=== PATIENT | female | born 1985 | race Caucasian/White ===

== ENCOUNTER → 2016-11-21 | Outpatient (REF) | payer OTHER ==
[~2016-11-21] MED LIST: ACET50TA PO; FLINCHW9 PO; IBUP80TA PO
[2016-11-21 18:17] LABS: ALBUMIN 4.1 GM/DL (3.2-5.2); ALBUMIN/GLOBULIN RATIO 1.24 (1.00-1.93); BILIRUBIN,DIRECT 0.1 MG/DL (0.0-0.2); BILIRUBIN,TOTAL 0.4 MG/DL (0.2-1.0); TOTAL PROTEIN 7.4 GM/DL (6.4-8.2)
== END ==
LOC: M SFHCCLAY 11:11
PROVIDERS: ATTEND Nurse Practitioner Family
DX: E78.5 Hyperlipidemia, unspecified (principal)

== ENCOUNTER → 2020-10-02 | Outpatient (REF) | payer OTHER ==
[~2020-10-02] MED LIST changes: -ACET50TA PO; +MAPA500T2 PO
[2020-10-02 13:56] LABS: HEMATOCRIT 39.2 % (36.0-47.0); HEMOGLOBIN 12.7 g/dl (12.0-15.5); MEAN CORPUSCULAR HEMOGLOBIN 28.5 pg (27.0-33.0); MEAN CORPUSCULAR HGB CONC 32.4 g/dl (32.0-36.5); MEAN CORPUSCULAR VOLUME 88.1 fl (80.0-96.0); PLATELET COUNT, AUTOMATED 319 10^3/uL (150-450); RED BLOOD COUNT 4.45 10^6/uL (4.00-5.40); WHITE BLOOD COUNT 9.1 10^3/uL (4.0-10.0)
[2020-10-02 14:11] LABS: ALT/SGPT 20 U/L (12-78); BILIRUBIN,TOTAL 0.4 MG/DL (0.2-1.0); CREATININE FOR GFR 0.72 MG/DL (0.55-1.30); GLOMERULAR FILTRATION RATE > 60.0 (>60); GLUCOSE CHALLENGE TEST 1 HOUR 186 MG/DL (LESS THAN 140); LDH LACTATE DEHYDROGENASE 108 U/L (84-246); URIC ACID 5.2 MG/DL (2.6-6.0)
[2020-10-02 14:30] LABS: CREATININE,RANDOM URINE 58.1 MG/DL; TOTAL PROTEIN,RANDOM URINE 9.3 MG/DL (0.0-12.0)
[2020-10-02 14:52] LABS: HEPATITIS C VIRUS ABY INDEX < 0.0 INDEX (<0.8)
[2020-10-02 14:53] LABS: HIV 1&2 SCREEN CENTAUR NEGATIVE (NEGATIVE)
== END ==
LOC: M PLALAB 10:32
PROVIDERS: ATTEND Advanced Practice Midwife
DX: O09.291 Supervision of pregnancy with other poor reproductive or obstetric history, first trimester (principal)

== ENCOUNTER → 2020-10-23 | Outpatient (CLI) | payer OTHER | LOC: M LAB 08:36 | PROVIDERS: ATTEND Advanced Practice Midwife | DX: O99.810 Abnormal glucose complicating pregnancy (principal) ==

== ENCOUNTER → 2020-11-21 | Outpatient (CLI) | payer OTHER | LOC: M WHC 15:20 | PROVIDERS: ATTEND Obstetrics & Gynecology | DX: Z34.92 Encounter for supervision of normal pregnancy, unspecified, second trimester (principal); Z3A.17 17 weeks gestation of pregnancy; Z53.9 Procedure and treatment not carried out, unspecified reason ==

== ENCOUNTER → 2020-12-15 | Outpatient (CLI) | payer OTHER ==
--- NOTE | 2020-12-15 19:24 | REP ---
INDICATION: ANATOMY. COMPARISON: 11/16/2014 TECHNIQUE: Second trimester anatomy screen FINDINGS: Scanning demonstrates a viable single intrauterine gestation in a cephalic lie. motion is observed and heart rate is recorded at 147 beats per minute. An anterior, grade 1 placenta is seen without evidence of previa. Amniotic fluid is subjectively normal. Closed cervical length is measured at 4.5 cm transabdominally. No extrauterine abnormality is observed. Three-vessel cord with mid insertion noted. There has been appropriate interval growth. No anomaly is seen. The following anatomic structures are identified and felt to be sonographically unremarkable: cranium, choroid plexus, cavum, cerebellum and posterior fossa, face and profile, lungs, four-chamber heart with left ventricular outflow tract views, diaphragm, left-sided stomach, abdominal wall cord insertion, three-vessel umbilical cord, kidneys and bladder, spine, and upper and lower extremities. The left ventricular outflow tract is poorly seen due to position. Biometry chart: BPD 4.7 cm; 20 weeks 1 days Head circumference 17.3 cm; 19 weeks 6 days Abdominal circumference 14.6 cm; 19 weeks 6 days Femur length 3.3 cm; 20 weeks 2 days Humeral length 3.3 cm; 21 weeks 0 days HC/AC ratio normal 1.19 Cephalic index normal 0.75 Estimated weight 329 grams, 0 pounds 11 ounces, 21st percentile for 20 weeks 4 days. IMPRESSION: Viable single intrauterine gestation at 20 weeks 2 days by today's composite sonographic criteria. Expected gestational age estimate based on prior sonography is 20 weeks is 4 days. DINO by prior sonography 05/02/2021. No anomaly identified, the right ventricular outflow tract not optimally seen and may be re-scanned later in the 2nd trimester. <Electronically signed by Frandy Reilly > 12/15/20 [id number]
== END ==
LOC: M WHC 14:11
PROVIDERS: ATTEND Obstetrics & Gynecology
DX: Z36.9 Encounter for antenatal screening, unspecified (principal); Z3A.20 20 weeks gestation of pregnancy

== ENCOUNTER → 2021-01-11 | Outpatient (CLI) | payer OTHER ==
--- NOTE | 2021-01-11 14:16 | REP ---
INDICATION: F/U ANATOMY. COMPARISON: 12/15/2020. TECHNIQUE: Multiple ultrasonographic images of the gravid uterus. FINDINGS: On the comparison study the cardiac right ventricular outflow tract not optimally demonstrated. The anatomy was otherwise normal. On the study today the cardiac right ventricular outflow tract is satisfactorily demonstrated and unremarkable in appearance. The There is a single intrauterine gestation in a breech presentation. The placenta is anterior with grade 1 maturity. There is no placenta previa. There is a three-vessel umbilical cord. heart rate is 144 beats per minute. Subjectively the amniotic fluid volume is normal. The composite ultrasound gestational age is 24 weeks 0 days with an DINO of 05/03/2021. Gestational age by the 1st ultrasound is 24 weeks 3 days with an DINO of 04/30/2021. Estimated weight is 735 g/1 lb, 9 oz. This is the 5th percentile for 24 weeks 3 days. The cervix measures 3.2 cm length. IMPRESSION: The cardiac right ventricular outflow tract is satisfactory demonstrated and is unremarkable. The remainder of the anatomy was previously evaluated and unremarkable. <Electronically signed by Orlando Kovacs > 01/11/21 [id number]
== END ==
LOC: M WHC 11:41
PROVIDERS: ATTEND Specialist
DX: Z34.82 Encounter for supervision of other normal pregnancy, second trimester (principal); Z3A.22 22 weeks gestation of pregnancy

== ENCOUNTER → 2021-01-24 | Outpatient (REF) | payer OTHER ==
[2021-01-24 15:30] LABS: HEMATOCRIT 38.6 % (36.0-47.0); HEMOGLOBIN 12.4 g/dl (12.0-15.5); MEAN CORPUSCULAR HEMOGLOBIN 28.6 pg (27.0-33.0); MEAN CORPUSCULAR HGB CONC 32.1 g/dl (32.0-36.5); MEAN CORPUSCULAR VOLUME 88.9 fl (80.0-96.0); PLATELET COUNT, AUTOMATED 308 10^3/uL (150-450); RED BLOOD COUNT 4.34 10^6/uL (4.00-5.40); WHITE BLOOD COUNT 12.3 10^3/uL (4.0-10.0)
[2021-01-24 15:48] LABS: HEMOGLOBIN A1c 5.4 %
== END ==
LOC: M PLALAB 12:24
PROVIDERS: ATTEND Obstetrics & Gynecology
DX: O24.319 Unspecified pre-existing diabetes mellitus in pregnancy, unspecified trimester (principal)

== ENCOUNTER → 2021-01-30 | Outpatient (CLI) | payer OTHER ==
--- NOTE | 2021-01-30 11:16 | REP ---
INDICATION: PREGESTATIONAL DIABETES COMPARISON: 01/11/2021 TECHNIQUE: Transabdominal obstetrical ultrasound with color Doppler evaluation. FINDINGS: Examination demonstrates a single live intrauterine in transverse (head to maternal left) presentation. motion is identified by technologist. Placenta is noted anterior and grade 1 without evidence for placenta previa or abruption. Amniotic fluid volume is normal. Cervix measures 4.0 cm in length and appears closed. Gestational age by LMP and 1st U/S 27 weeks 1 day with DINO 04/30/2021. Gestational age by current measurements 26 weeks 5 days with DINO 05/03/2021. FHR equals 146 beats per minute. BPD: 6.3 cm at 25 weeks 2 days HC: 24.7 cm at 26 weeks 6 days AC: 22.6 cm at 27 weeks 0 days FL: 5.0 cm at 26 weeks 5 days HL: 4.7 cm at 27 weeks 5 days HC/AC: 1.10 Estimated weight 994 grams (28thpercentile). BUDDY: 13.1 cm (9.5-22.6) IMPRESSION: Single live intrauterine in transverse lie demonstrating appropriate estimated weight and growth. <Electronically signed by Lupillo Huston > 01/30/21 [id number]
== END ==
LOC: M WHC 09:41
PROVIDERS: ATTEND Advanced Practice Midwife
DX: O24.312 Unspecified pre-existing diabetes mellitus in pregnancy, second trimester (principal); Z3A.27 27 weeks gestation of pregnancy

== ENCOUNTER 2021-03-07 11:23 | Outpatient (CLI) | payer OTHER ==
[2021-03-07] VITALS (15 sets, daily range): BP systolic 139–169; BP diastolic 70–93
[~2021-03-07] VITALS: Ht 162.6 cm; Wt 109.5 kg
--- NOTE | 2021-03-07 14:31 | REP ---
INDICATION: BPP and BUDDY, FHR cat II, Diabetes, hypertension. COMPARISON: Multiple TECHNIQUE: Transabdominal scanning FINDINGS: Multiple ultrasonographic images of the gravid uterus shows a single living intrauterine gestation in the cephalic presentation. Doppler interrogation of the heart shows a heart rate of 153 beats per minute. The placenta is anterior and not low-lying. The cervix measures 5.1 cm in length and is closed. The subjective amniotic fluid volume is within normal limits. The calculated amniotic fluid index is 10.9 within expected range a 10.9-24.3. Doppler interrogation of the umbilical artery shows an AB ratio of 2.35. This is within the normal range. biophysical profile score is 2 for breathing, 2 for tone, 2 for movement, and 2 for amniotic fluid volume giving a sum total of 8/8. IMPRESSION: Limited OB ultrasound as described above. <Electronically signed by Sarbjit Mcfarland > 03/07/21 [id number]
--- NOTE | 2021-03-07 16:04 | IPN ---
PROGRESS NOTE DATE: 03/07/2021 SUBJECTIVE: Tameka is a 35-year-old 4, para 2-1-0-3, 32-2/7 weeks gestation, estimated date of confinement of 04/30/2021 based on first trimester ultrasound. She presents to Labor and Delivery today for prolonged monitoring due to variable decelerations on her NST in the office for routine visit. She denies vaginal bleeding, leakage of fluid and contractions. The fetus has been active. Her care was initiated at [facility], [place] in the first trimester. course complicated by a history of a prior section with a proven , pre-gestational diabetes on Insulin, a history of preeclampsia, history of chronic hypertension on no current medications. Aspirin 81 mg a day. OBJECTIVE: Vital signs: Blood pressures 142/78, 146/78, 140/71. She is alert and oriented times three. She is smiling and talkative. The heart rate is difficult to trace due to maternal body habitus and the continuous movement. Sterile vag exam deferred. No pattern of contractions. She did undergo a biophysical profile which returned a score of 8 out of 8 and an BUDDY of 10.9. ASSESSMENT: Intrauterine at 32-2/7 weeks. Overall score is 8 out of 10. PLAN: Per consult with Dr. Asya Durán, no need for betamethasone at this time, no need for antihypertensives at this time. Plan to start utilizing biophysical profiles on a weekly basis instead of a non-stress test. The patient is to continue her care with the MDs at [facility], [place]. I did review the plan of care with the patient. All of her questions have been answered. She is to keep her appointment next week as scheduled and order will be placed for biophysical profile on a weekly basis.
[2021-03-07] MEDS ORDERED: PRENTAB9 PO (16:45)
[2021-03-07] MEDS ORDERED: INSULIN (16:49)
== END 2021-03-07 15:47 | disposition home or self-care (01) ==
LOC: M LDO 11:23
PROVIDERS: ATTEND Advanced Practice Midwife
DX: O36.8330 Maternal care for abnormalities of the fetal heart rate or rhythm, third trimester, not applicable or unspecified (principal); Z3A.33 33 weeks gestation of pregnancy; O24.414 Gestational diabetes mellitus in pregnancy, insulin controlled; O34.219 Maternal care for unspecified type scar from previous cesarean delivery; Z79.82 Long term (current) use of aspirin

== ENCOUNTER 2021-03-14 11:47 | Inpatient (IN) | payer OTHER ==
[2021-03-14] VITALS (47 sets, daily range): BP systolic 129–199; BP diastolic 62–101
[~2021-03-14] VITALS: Ht 162.6 cm; Wt 108.6 kg
[~2021-03-14 11:47] MED LIST changes: +INSULIN; +PRENTAB9 PO
[2021-03-14 14:17] LABS: HEMATOCRIT 37.4 % (36.0-47.0); HEMOGLOBIN 12.5 g/dl (12.0-15.5); MEAN CORPUSCULAR HEMOGLOBIN 28.5 pg (27.0-33.0); MEAN CORPUSCULAR HGB CONC 33.4 g/dl (32.0-36.5); MEAN CORPUSCULAR VOLUME 85.4 fl (80.0-96.0); PLATELET COUNT, AUTOMATED 304 10^3/uL (150-450); RED BLOOD COUNT 4.38 10^6/uL (4.00-5.40); WHITE BLOOD COUNT 10.8 10^3/uL (4.0-10.0)
[2021-03-14 14:35] LABS: ALT/SGPT 12 U/L (12-78); BILIRUBIN,TOTAL 0.3 MG/DL (0.2-1.0); CREATININE FOR GFR 0.46 MG/DL (0.55-1.30); GLOMERULAR FILTRATION RATE > 60.0 (>60); LDH LACTATE DEHYDROGENASE 176 U/L (84-246); URIC ACID 6.5 MG/DL (2.6-6.0)
[2021-03-14 15:39] LABS: TOTAL PROTEIN,RANDOM URINE 219.7 MG/DL (0.0-12.0)
--- NOTE | 2021-03-14 15:40 | REP ---
INDICATION: BPP, BUDDY, GROWTH, HTN, IDDM. COMPARISON: 03/07/2021. TECHNIQUE: Real-time sonographic evaluation of the gravid uterus performed. FINDINGS: Estimated gestational age is33 weeks 2 days, EDC 04/30/2021. Today's measurements indicate appropriate growth. Presentation: Cephalic Placenta anterior, grade 3, without evidence of placenta previa. heart rate is recorded at 136 beats per minute. Amniotic fluid is subjectively normal. BUDDY 10.2, normal 8.2-24.6. Biophysical profile score 8/8. Closed cervical length is measured at 3.4 cm. SD ratio umbilical artery 2.63, normal 1.77-3.74. RI 0.62, normal 0.48-0.74. Biometry chart: BPD: 82 mm, 33 weeks 0 days, 46th percentile. HC: 303 mm, 33 weeks 5 days, 56th percentile AC: 289 mm, 32 weeks 6 days, 44th percentile Femur length: 62 mm, 32 weeks 2 days, 34th percentile HC to AC ratio: 1.05, normal range 0.95-1.13. Estimated weight: 2047g, 48th percentile. Visualized anatomy today includes lateral ventricles, posterior fossa, upper lip, stomach, three-vessel cord, kidneys, bladder and spine which are all grossly unremarkable. IMPRESSION: Viable single intrauterine gestation as above. <Electronically signed by Orlando Franklin > 03/14/21 [id number]
[2021-03-14] MEDS ORDERED: LIDOCAINE 1% MDV 20ML VIAL INFIL PRN (16:35)
[2021-03-14] MEDS ORDERED: OXYTOCIN INJ 10 UNITS/ML VIAL (J2590) IM PRN (16:35)
[2021-03-14] MEDS ORDERED: CARBOPROST TROMETHAMINE 250 MCG/ML AMP IM PRN (16:35)
[2021-03-14] MEDS ORDERED: OXYTOCIN DRIP 30 UNITS in IV 1 EA IV PRN (16:35)
[2021-03-14] MEDS ORDERED: D5W/0.9% SODIUM CHLORIDE 1,000 ML IV SCH (16:50)
[2021-03-14] MEDS: BETAMETHASONE SOLUSPAN 6MG/ML 5ML VIAL (J0702 PER 3MG) IM SCH (17:02)
[2021-03-14] MEDS: NS 1,000 ML IV SCH (17:30)
--- NOTE | 2021-03-14 17:44 | HPE ---
HISTORY AND PHYSICAL DATE OF ADMISSION: 03/14/2021 Tameka is a 35-year-old, 4, para 2-1-0-3 at 32-2/7 weeks gestation. Estimated date of confinement (EDC) of 04/30/2021 based on first-trimester ultrasound. She presents to labor and delivery today following a routine appointment, where she was noted to have two severe-range blood pressures. Since arrival to labor and delivery she denies headaches, visual disturbances, epigastric pain, and right upper quadrant discomfort. She denies vaginal bleeding, leakage of fluid, contractions. The fetus has been active. [facility] was [facility] at [facility] in the first trimester. Her course complicated by a history of a prior section times one. She had a prior spontaneous vaginal delivery prior to that, and she also has had a successful vaginal after () since her section. Pregestational diabetes, managed by insulin, that the patient has not controlled well throughout this . A history of pre-eclampsia in #2, where she had an emergency section. Her baseline labs, she had a uric acid of 5.2 as well as a spot urine of 0.16 on 10/02/2020. She has been taking aspirin 81 mg a day since 12 weeks gestation. Also currently in this , chronic hypertension. Had elevated blood pressures prior to 20 weeks. No medications. OBSTETRIC HISTORY: On 03/23/2008, 39 weeks gestation, 8-pound 3-ounce male, vaginal delivery. No complications. On 03/17/2012, 32 weeks gestation, 3-pound female, section, [facility], due to pre-eclampsia. On 12/10/2014, 40 weeks gestation, 9-pound female, vaginal delivery, [facility]. Gestational diabetes during that . OBSTETRIC LABORATORY DATA: A positive, antibody screen negative, syphilis negative, hepatitis B negative, hepatitis C negative, HIV negative, gonorrhea and chlamydia negative, rubella immune. She did have an early 1-hour glucose tolerance test of 186 as well as an abnormal 3-hour glucose tolerance test. Fasting 111, 1-hour 219, 2-hour 212, and 3-hour 203. The most recent hemoglobin A1c on 01/24/2021 was 5.4 with an average estimated glucose of 108. Her GBS is unknown at this time. PAST MEDICAL HISTORY: 1. Thyroid issues during her first and hypertension. 2. Pre-eclampsia with the second . 3. Chronic hypertension. 4. Gestational diabetes. 5. Pre-existing diabetes with this . SURGERIES: 1. section. 2. Implanon and Norplant FAMILY HISTORY: Heart disease and hypertension, varicose vein, deep venous thrombosis (DVT), cardiac disease, myocardial infarction, and cancer. SOCIAL HISTORY: The patient is a nonsmoker. She denies alcohol and drug use. She denies history of sexual transmitted infections, and she denies history of abuse, physical, sexual, and emotional. ALLERGIES: No known drug allergies. MEDICATIONS: Most recent insulin regimen changed today by Dr. Hanyes, every morning 38 units of NPH, 20 units of regular. Every evening, 16 units of NPH then 18 units of regular. vitamin. OBJECTIVE: Upon arrival, initial blood pressure 155/101. They did remain in the 140s over 80s and 90s for several hours while she was here; however, most recently she has had multiple elevated pressures in the severe range, 177/92, 165/88, and 172/87. heart rate continues to be category 2, 130, moderate variability. There are variable decelerations noted. Positive accelerations. There is no pattern of contractions. She did undergo a biophysical profile today with a score of 8/8, an amniotic fluid index (BUDDY) of 10.2. The fetus is cephalic. The estimated weight is 2047 grams, in the 48t percentile. She did have CBC, hemoglobin today 12.5, hematocrit 37.4, and her platelets are 304. Pre-eclamptic labs with a creatinine of 0.46, AST of 12, ALT of 12, LDH of 176, and a uric acid is 6.5. Today's spot urine for protein is 1.15. ASSESSMENT: Intrauterine at 33-2/7 weeks, heart rate category 2, biophysical profile (BPP) 8/8, superimposed pre-eclampsia. . PLAN: Per consult with Dr. Abrahan Stovall, admit patient to labor and delivery. Repeat pre-eclamptic labs in 6 hours. Betamethasone for lung maturity. Insulin drip to manage insulins while she responds to betamethasone. Intravenous (IV) access. Routine laboratories as well. Will keep nothing by mouth status at this time. Continue to observe. May consider induction of labor if blood pressures (BPs) continue to be severe range. Plan of care reviewed with the patient. Risks, benefits, and alternatives reviewed. All of her questions have been answered. She has been verbally consented for emergency surgery and blood products if they are necessary.
[2021-03-14] MEDS ORDERED: LABETALOL 100MG/20ML VIAL As Ordered ONE (18:10)
[2021-03-14] MEDS ORDERED: LABETALOL 100MG/20ML VIAL IV STA ×4 (18:13→20:10)
[2021-03-14 18:45] LABS: HEMATOCRIT 37.7 % (36.0-47.0); HEMOGLOBIN 12.5 g/dl (12.0-15.5); MEAN CORPUSCULAR HEMOGLOBIN 28.5 pg (27.0-33.0); MEAN CORPUSCULAR HGB CONC 33.2 g/dl (32.0-36.5); MEAN CORPUSCULAR VOLUME 85.9 fl (80.0-96.0); PLATELET COUNT, AUTOMATED 288 10^3/uL (150-450); RED BLOOD COUNT 4.39 10^6/uL (4.00-5.40); WHITE BLOOD COUNT 11.1 10^3/uL (4.0-10.0)
[2021-03-14 19:03] LABS: ALT/SGPT 12 U/L (12-78); BILIRUBIN,TOTAL 0.2 MG/DL (0.2-1.0); CREATININE FOR GFR 0.59 MG/DL (0.55-1.30); GLOMERULAR FILTRATION RATE > 60.0 (>60); LDH LACTATE DEHYDROGENASE 175 U/L (84-246); URIC ACID 6.3 MG/DL (2.6-6.0)
[2021-03-14] MEDS: LABETALOL 200 MG TAB PO SCH (21:47)
[2021-03-14] MEDS: INSULIN REGULAR IN 0.9 % NACL 100 UNIT in IV 1 EA IV SCH ×2 (21:56)
[2021-03-14 23:04] LABS: HEMATOCRIT 36.6 % (36.0-47.0); MEAN CORPUSCULAR HGB CONC 32.8 g/dl (32.0-36.5); MEAN CORPUSCULAR VOLUME 85.3 fl (80.0-96.0); PLATELET COUNT, AUTOMATED 278 10^3/uL (150-450); RED BLOOD COUNT 4.29 10^6/uL (4.00-5.40)
[2021-03-14 23:56] LABS: ALT/SGPT 13 U/L (12-78); BILIRUBIN,TOTAL 0.4 MG/DL (0.2-1.0); CREATININE FOR GFR 0.56 MG/DL (0.55-1.30); GLOMERULAR FILTRATION RATE > 60.0 (>60); LDH LACTATE DEHYDROGENASE 157 U/L (84-246); URIC ACID 6.2 MG/DL (2.6-6.0)
[2021-03-15] VITALS (30 sets, daily range): BP systolic 123–183; BP diastolic 60–85
[2021-03-15] MEDS: NS 1,000 ML IV SCH ×3 (01:36→18:54)
[2021-03-15] MEDS: INSULIN REGULAR IN 0.9 % NACL 100 UNIT in IV 1 EA IV SCH ×10 (02:10→23:08)
[2021-03-15] MEDS: LABETALOL 200 MG TAB PO SCH ×2 (08:07→19:40)
[2021-03-15] MEDS: BETAMETHASONE SOLUSPAN 6MG/ML 5ML VIAL (J0702 PER 3MG) IM SCH (16:54)
[2021-03-15] MEDS: CALCIUM CARBONATE 500 MG CHEW U/D PO PRN (17:59)
[2021-03-16] VITALS (24 sets, daily range): BP systolic 113–162; BP diastolic 62–93
[2021-03-16] MEDS: CALCIUM CARBONATE 500 MG CHEW U/D PO PRN ×6 (00:36→23:04)
[2021-03-16] MEDS: INSULIN REGULAR IN 0.9 % NACL 100 UNIT in IV 1 EA IV SCH ×10 (01:04→20:19)
[2021-03-16] MEDS: NS 1,000 ML IV SCH ×3 (02:11→21:00)
[2021-03-16] MEDS: LABETALOL 200 MG TAB PO SCH ×2 (08:05→19:02)
[2021-03-16] MEDS: INSULIN IV RATE CHANGE DOCUMENTATION ML/HR XX SCH ×8 (09:10→23:04)
--- NOTE | 2021-03-16 10:01 | IPNPDOC ---
Text Note Date of Service The patient was seen on 03/16/21. NOTE Late entry progress note for 03/15/21 Tameka is a 35yo with SIUP at 33w4d (today) by 7wk u/s who is currently admitted for administration of IM betamethasone for lung maturity in the setting of new diagnosis of CHTN with super-imposed pre-eclampsia. She was sent over from clinic on 03/14 for severe elevated bp's during routine visit and on arrival had mild range bp's (toward the higher end). She had a BPP 8/8. Urine prot:creat >1, uric acid slightly elevated, otherwise creatinine/LFTs/plt wnl. She has now received 2 doses of betamethasone as of 1700 last night and has done well on insulin drip that was initiated in anticipation of elevated glucose levels after steroid administration. She was started on 400mg PO labetalol BID yesterday to keep bp's in the mild range. When I rounded on Tameka yesterday morning she was doing very well, in good spirits, with no complaints. status remains reassuring with intermittent NSTs. BP's remain mild range Pt has no sx of pre-E. Overall there has been good glucose control with IV insulin and diabetic diet Patient will be 24hr steroid complete this evening and plan of care will need to be solidified at that point. Discussed patient's care with Dr. Stovall who is taking over as the on-call physician today. ALMAS Milton is also apprised of patient's situation. MD TALAT Alfonso Fishbone, I+O VSMerlin, I+O Vital Signs Date Time Temp Pulse Resp B/P (MAP) Pulse Ox O2 Delivery O2 Flow Rate FiO2 03/16/21 08:58 88 20 145/78 (100) 03/16/21 07:52 97.9 96 Room Air I&O- Last 24 Hours up to 6 AM 03/16/21 05:59 Intake Total 1375 ml Output Total 1300 ml Balance 75 ml Radha Haynes MD March 16, 2021 10:01
[2021-03-16 12:17] LABS: HEMATOCRIT 33.1 % (36.0-47.0); HEMOGLOBIN 10.9 g/dl (12.0-15.5); MEAN CORPUSCULAR HEMOGLOBIN 28.8 pg (27.0-33.0); MEAN CORPUSCULAR HGB CONC 32.9 g/dl (32.0-36.5); MEAN CORPUSCULAR VOLUME 87.6 fl (80.0-96.0); PLATELET COUNT, AUTOMATED 279 10^3/uL (150-450); RED BLOOD COUNT 3.78 10^6/uL (4.00-5.40); WHITE BLOOD COUNT 19.4 10^3/uL (4.0-10.0)
[2021-03-16 12:44] LABS: ALT/SGPT 10 U/L (12-78); BILIRUBIN,TOTAL 0.2 MG/DL (0.2-1.0); GLOMERULAR FILTRATION RATE > 60.0 (>60); LDH LACTATE DEHYDROGENASE 164 U/L (84-246); URIC ACID 6.9 MG/DL (2.6-6.0)
--- NOTE | 2021-03-16 14:55 | IPNPDOC ---
Text Note Date of Service The patient was seen on 03/16/21. NOTE Progress Having breakthrough BP elevations, 150's/70's despite labetalol 400mg BID FH 135, reassuring for gestation No UC Repeat labs stable except uric acid 6.9 Pt status reviewed with Dr Stovall. Will continue insulin gtt till 24hrs post betamethasone then resume her home regimen Add procardia 30mg daily Dr Stovall will discuss patient status with Dr Cadena in am, consider IOL VS,Fishbone, I+O VS, Fishbone, I+O Laboratory Tests 03/16/21 11:51 Vital Signs Date Time Temp Pulse Resp B/P (MAP) Pulse Ox O2 Delivery O2 Flow Rate FiO2 03/16/21 14:05 79 157/76 (103) 03/16/21 14:03 20 03/16/21 13:04 97 Room Air 03/16/21 13:02 97.9 I&O- Last 24 Hours up to 6 AM 03/16/21 06:00 Intake Total 1375 ml Output Total 1300 ml Balance 75 ml Marcela Milton CNM March 16, 2021 14:55
[2021-03-16] MEDS: NIFEdipine 30 MG XL TAB PO SCH (15:13)
--- NOTE | 2021-03-16 17:15 | IPNPDOC ---
Text Note Date of Service The patient was seen on 03/16/21. NOTE Progress Blood pressures are improved with addition of procardia Blood glucose levels have been 100's-120's. Insulin GTT currently at 2units. Consulted Dr Stovall. Will continue GTT overnight as he plans to discuss IOL with Dr Cadena in am Decrease glucose testing to Q 2 hrs. FH reassuring VS,Fishbone, I+O VS, Fishbone, I+O Laboratory Tests 03/16/21 11:51 Vital Signs Date Time Temp Pulse Resp B/P (MAP) Pulse Ox O2 Delivery O2 Flow Rate FiO2 03/16/21 16:04 98.4 74 20 149/75 (99) 97 Room Air I&O- Last 24 Hours up to 6 AM 03/16/21 06:00 Intake Total 1375 ml Output Total 1300 ml Balance 75 ml Marcela Milton CNM March 16, 2021 17:15
[2021-03-17] VITALS (16 sets, daily range): BP systolic 118–166; BP diastolic 63–80
[2021-03-17] MEDS: LABETALOL 200 MG TAB PO SCH (07:18)
[2021-03-17] MEDS: NIFEdipine 30 MG XL TAB PO SCH (07:18)
--- NOTE | 2021-03-17 07:40 | IPNPDOC ---
Text Note Date of Service The patient was seen on 03/17/21. NOTE Progress Insulin GTT is currently off Blood pressures were well controlled overnight but elevated again this morning. AM doses of labetalol and procardia given early Reviewed heart strip since admission. Initially true Cat I tracing, excellent accelerations and variability. Now predominantly Cat II, rare accelerations, variability maintained Reviewed pt status with Dr Cadena. He will consider induction upon arrival. VS,Fishbone, I+O VS, Fishbone, I+O Laboratory Tests 03/16/21 11:51 Vital Signs Date Time Temp Pulse Resp B/P (MAP) Pulse Ox O2 Delivery O2 Flow Rate FiO2 03/17/21 07:18 67 166/80 03/17/21 07:10 97.7 20 97 Room Air I&O- Last 24 Hours up to 6 AM 03/17/21 06:00 Intake Total 4844 ml Output Total 2900 ml Balance 1944 ml Marcela Milton CNM March 17, 2021 07:40
[2021-03-17] MEDS: NS 1,000 ML IV SCH (09:28)
[2021-03-17] MEDS ORDERED: LACTATED RINGER'S 1000 ML IV STA (09:47)
[2021-03-17] MEDS ORDERED: LR 1,000 ML IV SCH ×3 (09:50→11:45)
[2021-03-17] MEDS ORDERED: BICITRA 30ML SOLN UDC PO ONE (09:50)
[2021-03-17] MEDS ORDERED: ceFAZolin SOD 2 GM in IV 1 EA IV ONE (09:50)
[2021-03-17] MEDS ORDERED: BICITRA 30ML SOLN UDC As Ordered ONE (09:54)
[2021-03-17] MEDS ORDERED: MORPHINE PRES-FREE INJ 10 MG/10 ML VIAL (J2274) As Ordered ONE (09:56)
[2021-03-17] MEDS ORDERED: OXYTOCIN INJ 10 UNITS/ML VIAL (J2590) As Ordered ONE (09:57)
--- NOTE | 2021-03-17 09:58 | IPNPDOC ---
Text Note Date of Service The patient was seen on 03/17/21. NOTE 35 yo at 33 5/7 weeks gestation by 7 week ultrasound admitted with pr eeclampsia. She has completed steroids. She has evidence of severe features of preeclampsia based upon blood pressure criteria. Her BP's are becoming increasingly difficult to manage. In addition, the heart rate tracing has been persistently category II due due to lack of variability. It is unclear the exact significance of this finding. The patient has had a prior in the past. I believe delivery is indicated. The patient is now requesting for delivery along with tubal sterilization. Plan to proceed with . VS,Fishbone, I+O VS, Fishbone, I+O Laboratory Tests 03/16/21 11:51 Vital Signs Date Time Temp Pulse Resp B/P (MAP) Pulse Ox O2 Delivery O2 Flow Rate FiO2 03/17/21 08:10 68 20 142/68 (92) 03/17/21 07:10 97.7 97 Room Air I&O- Last 24 Hours up to 6 AM 03/17/21 06:00 Intake Total 4844 ml Output Total 2900 ml Balance 1944 ml KORI BRUNSON MD March 17, 2021 09:58
[2021-03-17] MEDS ORDERED: ONDANSETRON 4MG/2ML VIAL IV PRN ×3 (10:13→11:45)
[2021-03-17] MEDS ORDERED: NALBUPHINE HCL 10 MG/ML AMP (J2300) IV PRN (10:13)
[2021-03-17] MEDS ORDERED: diphenhydrAMINE 50MG/ML VIAL (J1200) IV PRN (10:13)
[2021-03-17] MEDS ORDERED: METOCLOPRAMIDE INJ 10MG/2ML VIAL (J2765 PER 1) IV PRN ×2 (10:13→11:45)
[2021-03-17] MEDS ORDERED: NALOXONE INJ 0.4MG/1ML VIAL (J2310 PER 1MG) IV PRN ×2 (10:13)
[2021-03-17] MEDS ORDERED: KETOROLAC 60MG 2ML VIAL As Ordered ONE ×2 (10:22→10:24)
[2021-03-17] MEDS ORDERED: ONDANSETRON 4MG/2ML VIAL As Ordered ONE ×2 (10:22→10:24)
[2021-03-17 10:50] LABS: CORD GAS ABE V -0.1; CORD GAS HCO3 V 26.6 MEQ/L; CORD GAS O2 SAT V 61.4 %; CORD GAS PCO2 V 50.6 mmHg; CORD GAS PH V 7.339 UNITS; CORD GAS PO2 V 26.4 mmHg; CORD GAS SBC V 23.4 MEQ/L; CORD GAS TCO2 V 28.2 MEQ/L
[2021-03-17 10:52] LABS: CORD GAS ABE A 0.3; CORD GAS HCO3 A 28.6 MEQ/L; CORD GAS O2 SAT A 35.6 %; CORD GAS PCO2 A 60.6 mmHg; CORD GAS PH A 7.292 UNITS; CORD GAS PO2 A 16.9 mmHg; CORD GAS TCO2 A 30.5 MEQ/L
[2021-03-17] MEDS ORDERED: MEASLES,MUMPS,RUBELLA VACCINE INJ (MMR-II) (90707) SC SCH (11:05)
[2021-03-17] MEDS ORDERED: PERCOCET 5MG/325MG TAB PO PRN ×2 (11:05→11:45)
[2021-03-17] MEDS ORDERED: OXYTOCIN DRIP 30 UNITS in IV 1 EA IV SCH (11:05)
[2021-03-17] MEDS ORDERED: RHOGAM 300 MCG (1500 IU) INJ (J2790) IM SCH (11:05)
[2021-03-17] MEDS ORDERED: SIMETHICONE 80MG CHEW TAB PO PRN (11:05)
[2021-03-17] MEDS ORDERED: OXYTOCIN 30 UNITS IN 0.9% NaCl 500ML IV BAG (J2590) As Ordered ONE (11:19)
[2021-03-17] MEDS ORDERED: fentaNYL 100 MCG/2 ML INJECTION (J3010) IV PRN (11:45)
--- NOTE | 2021-03-17 15:08 | ROOPDOC ---
[facility] Report Of Operation Report of Operation DATE OF PROCEDURE: 03/17/21 Report of operation Preoperative diagnosis: 33 5/7 week, preeclampsia, prior Postoperative diagnosis: same Procedure: Repeat low transverse section and bilateral tubal ligation. Surgeon: Kori Brunson M.D. Asst.: Troy Mirza DO EBL: 600 ml. Urine output: 100 mL's. Findings: 4 lbs. 4 oz. (1933 g) female infant, 's 5 and 8, normal uterus, fallopian tubes, ovaries. Operative summary: Patient taken to the operating room where spinal anesthesia was induced. She was prepped draped sterile fashion in the supine position. A Lock catheter was placed. A Pfannenstiel skin incision was made with scalpel. Fascia was incised and extended bilaterally. The peritoneal cavity was entered. A Mobius retractor was placed. A bladder flap was created. A curvilinear incision was made in lower uterine segment until Clear fluid was noted. The incision was extended manually. The was delivered from the vertex position without difficulty. Cord was double clamped and cut. The was handed to the awaiting commercial artist. The placenta was expressed. Uterus was closed with O-Vicryl in a running locked fashion. A second imbricating layer of Vicryl was placed. Attention was turned to the fallopian tubes. A Conway clamp was used to grasp the fallopian tubes at the midportion.. A window was created in the broad ligament free tie of 3-0 chromic was placed around the segment of tube on either side of the clamp. A Segment of tube was excised bilaterally and sent to pathology. Peritoneum was closed with 2-0 Vicryl a running fashion. Fascia was closed with 0 Vicryl in running fashion. Skin was closed 4-0 Monocryl subcuticular sutures. Sponge, instrument and needle counts were correct. Troy Mirza DO, assisted with all aspects of the procedure. He helped each close layer of the incision and deliver the fetus. KORI BRUNSON MD March 17, 2021 15:08
[2021-03-17] MEDS: KETOROLAC 30 MG/ML 1ML VIAL IV SCH ×2 (17:13→22:51)
[2021-03-18] VITALS (7 sets, daily range): BP systolic 145–179; BP diastolic 74–91
[2021-03-18] MEDS: KETOROLAC 30 MG/ML 1ML VIAL IV SCH (04:58)
[2021-03-18 07:35] LABS: HEMOGLOBIN 10.5 g/dl (12.0-15.5); MEAN CORPUSCULAR HGB CONC 31.8 g/dl (32.0-36.5); PLATELET COUNT, AUTOMATED 251 10^3/uL (150-450); RED BLOOD COUNT 3.75 10^6/uL (4.00-5.40); WHITE BLOOD COUNT 14.5 10^3/uL (4.0-10.0)
[2021-03-18] MEDS: LABETALOL 200 MG TAB PO SCH ×2 (08:48→18:04)
[2021-03-18] MEDS: PRENATAL VITAMINS CHEWABLE TABLET PO SCH (08:49)
--- NOTE | 2021-03-18 10:38 | IPNPDOC ---
Progress Note Date of Service: March 18, 2021 Progress Note SUBJECT: No complaints. pain managed well. OBJECTIVE: VITAL SIGNS: Within normal limits, afebrile. Alert and oriented times three. Breath sounds clear to auscultation. Heart rate: Regular rate and rhythm, no murmurs, rubs or gallops. Abdomen: Fundus firm at U-2. Soft, NTTP., dressing c/d/i ASSESSMENT: 35 yo s/p at 33 5/7 weeks for preeclampsia, diabetes PLAN: start labetalol 200 mg BID to help control BP Ambulate advance diet VS, I&O, 24H, Fishbone Vital Signs/I&O Vital Signs Date Time Temp Pulse Resp B/P (MAP) Pulse Ox O2 Delivery O2 Flow Rate FiO2 03/18/21 10:05 99.0 74 14 157/81 (106) 96 Room Air 03/17/21 22:00 2.0 I&O- Last 24 Hours up to 6 AM 03/18/21 06:00 Intake Total 1291 ml Output Total 3630 ml Balance -2339 ml Laboratory Data 24H LABS Laboratory Tests 2 03/17/21 10:43: Cord Arterial Blood pH 7.292, Cord Arterial Blood PCO2 60.6, Cord Arterial Blood PO2 16.9, Cord Arterial Blood HCO3 28.6, Cord Arterial Blood Total CO2 30.5, Cord Arterial Blood Base Excess 0.3, Cord Arterial Base Excess (Standard 23.0, Cord Arterial Bld Oxygen Saturation 35.6, Cord Venous Blood pH 7.339, Cord Venous Blood PCO2 50.6, Cord Venous Blood PO2 26.4, Cord Venous Blood HCO3 26.6, Cord Venous Blood Total CO2 28.2, Cord Venous Base Excess (Actual) -0.1, Cord Venous Base Excess (Standard) 23.4, Cord Venous Blood Oxygen Saturation 61.4 03/17/21 15:01: Bedside Glucose (Misc Panel) 96 03/18/21 07:24: Nucleated Red Blood Cells % (auto) 0.4H CBC/BMP Laboratory Tests 03/18/21 07:24 Microbiology Microbiology 03/14/21 Group B Streptococcus Screen (LEE) - Final, Complete Strep Agalactiae Group B 03/14/21 Respiratory Virus Panel (PCR) (LEE) - Final, Complete Human Rhinovirus/Enterovirus KORI BRUNSON MD March 18, 2021 10:38
[2021-03-18] MEDS: IBUPROFEN 800 MG TAB PO SCH ×2 (13:00→20:45)
[2021-03-18] MEDS: PERCOCET 5MG/325MG TAB PO PRN (22:02)
[2021-03-19 02:35] VITALS: BP 164/83
[2021-03-19 02:37] VITALS: BP 158/72
[2021-03-19] MEDS: PERCOCET 5MG/325MG TAB PO PRN (04:15)
[2021-03-19] MEDS: IBUPROFEN 800 MG TAB PO SCH (05:04)
[2021-03-19 06:00] VITALS: BP 165/67
[2021-03-19 06:18] VITALS: BP 161/76
[2021-03-19] MEDS ORDERED: IBUP80TA PO (07:18)
[2021-03-19] MEDS ORDERED: OXYC1TAB23 PO (07:19)
--- NOTE | 2021-03-19 07:32 | DS.PDOC ---
Discharge Summary General Date of Admission March 14, 2021 at 16:28 Date of Discharge March 19, 2021 Discharge Summary PROCEDURES PERFORMED DURING STAY: and BTL. ADMITTING DIAGNOSES: 1. 33 4/7 weeks gestation, preeclampsia, prior section. DISCHARGE DIAGNOSES: 1. delivered. COMPLICATIONS/CHIEF COMPLAINT: Preeclampsia. HISTORY OF PRESENT ILLNESS: 35 yo at 33 4/7 weeks gestation presents with elevated BP's. Her course is significant for gestational diabetes and chronic hypertension .She has had one prior section. Due to the severe aspects of preeclampsia the decision was made to proceed toward delivery. She completed steroids. She chose . On March 17, 2021 . She underwent a repeat section, bilateral tubal sterilization. Procedure was uncomplicated. Her postoperative course was significant for elevated blood pressures. She was placed on labetalol 400 mg twice a day. Her blood pressure was adequately controlled. She had adequate return of bladder, bowel function. She was deemed stable for discharge on postop day #2. DISCHARGE MEDICATIONS: Please see below. ALLERGIES: Please see below. PHYSICAL EXAMINATION ON DISCHARGE: VITAL SIGNS: Please see below. GENERAL: wnl HEENT: NCAT CARDIOVASCULAR EXAMINATION: RRR RESPIRATORY EXAMINATION: CTA ABDOMINAL EXAMINATION: NT EXTREMITIES: NT LABORATORY DATA: Please see below. PROGNOSIS: good ACTIVITY: As tolerated. DIET: reg DISCHARGE PLAN: home DISPOSITION: . DISCHARGE INSTRUCTIONS: 1. d/c home 2. instructions 3. check BP in office 1 week reviewed. DISCHARGE CONDITION: Stable. TIME SPENT ON DISCHARGE: Greater than 10 minutes. Vital Signs/I&Os Vital Signs Date Time Temp Pulse Resp B/P (MAP) Pulse Ox O2 Delivery O2 Flow Rate FiO2 03/19/21 06:18 161/76 (104) 03/19/21 06:00 98.3 67 16 97 Room Air 03/17/21 22:00 2.0 Microbiology Microbiology 03/14/21 Group B Streptococcus Screen (LEE) - Final, Complete Strep Agalactiae Group B 03/14/21 Respiratory Virus Panel (PCR) (LEE) - Final, Complete Human Rhinovirus/Enterovirus Discharge Medications Scheduled Ibuprofen (Ibuprofen) 800 Mg Tablet, 800 MG PO Q8H No.137/Iron/Folic Acd ( Vitamin Tablet) 1 Each Tablet, 1 TAB PO DAILY, (Reported) Scheduled PRN Oxycodone HCl/Acetaminophen (Oxycodone-Acetaminophen 5-325) 1 Each Tablet, 1 TAB PO TIDP PRN for pain Allergies Coded Allergies: No Known Allergies (Unverified , 12/12/14) KORI BRUNSON MD March 19, 2021 07:32
[2021-03-19 08:46] VITALS: BP 167/74
[2021-03-19] MEDS: PRENATAL VITAMINS CHEWABLE TABLET PO SCH (08:46)
[2021-03-19] MEDS ORDERED: LABETALOL 200 MG TAB PO SCH (09:00)
== END 2021-03-19 10:47 | disposition home or self-care (01) | DRG 540 ==
LOC: M LDO 11:47 → M LDI 16:28 → M OBS 03-17 12:44
PROVIDERS: ADMIT Advanced Practice Midwife; ATTEND Advanced Practice Midwife
PROC: 0UB70ZZ Excision of Bilateral Fallopian Tubes, Open Approach (ICD-10-PCS; 2021-03-17)
PROC: 10D00Z1 Extraction of Products of Conception, Low, Open Approach (ICD-10-PCS; principal; 2021-03-17 10:00)
DX: O14.14 Severe pre-eclampsia complicating childbirth (principal); O60.14X0 Preterm labor third trimester with preterm delivery third trimester, not applicable or unspecified; O24.414 Gestational diabetes mellitus in pregnancy, insulin controlled; Z37.0 Single live birth; Z3A.32 32 weeks gestation of pregnancy; O34.211 Maternal care for low transverse scar from previous cesarean delivery

== ENCOUNTER 2021-03-23 15:35 | Emergency (ER) | payer OTHER ==
[~2021-03-23] VITALS: Ht 162.6 cm; Wt 99.8 kg
[~2021-03-23 15:35] MED LIST changes: +OXYC1TAB23 PO
[2021-03-23] MEDS ORDERED: LABETALOL 200 MG TAB PO ONE (16:15)
[2021-03-23] MEDS ORDERED: NIFEdipine 10 MG CAP PO STA (16:18)
[2021-03-23 16:23] LABS: BASO # 0.1 10^3/uL (0.0-0.2); BASO % 0.6 % (0.0-1.0); EOS # 0.2 10^3/uL (0.0-0.5); EOS % 1.6 % (0.0-3.0); HEMOGLOBIN 13.4 g/dl (12.0-15.5); LYMPH # 2.5 10^3/uL (1.5-5.0); LYMPH % 22.3 % (24.0-44.0); MEAN CORPUSCULAR HEMOGLOBIN 28.1 pg (27.0-33.0); MEAN CORPUSCULAR HGB CONC 32.7 g/dl (32.0-36.5); MONO # 0.8 10^3/uL (0.0-0.8); MONO % 6.8 % (2.0-8.0); NEUTROPHILS # 7.6 10^3/uL (1.5-8.5); NEUTROPHILS % 66.7 % (36.0-66.0); PLATELET COUNT, AUTOMATED 350 10^3/uL (150-450); RED BLOOD COUNT 4.77 10^6/uL (4.00-5.40); WHITE BLOOD COUNT 11.3 10^3/uL (4.0-10.0)
[2021-03-23 16:46] LABS: ALBUMIN 3.1 GM/DL (3.2-5.2); ALT/SGPT 42 U/L (12-78); BILIRUBIN,TOTAL 0.4 MG/DL (0.2-1.0); BLOOD UREA NITROGEN 18 MG/DL (7-18); CALCIUM LEVEL 9.7 MG/DL (8.5-10.1); CARBON DIOXIDE LEVEL 24 MEQ/L (21-32); CHLORIDE LEVEL 106 MEQ/L (98-107); CREATININE FOR GFR 0.63 MG/DL (0.55-1.30); GLOMERULAR FILTRATION RATE > 60.0 (>60); GLUCOSE, FASTING 98 MG/DL (70-100); POTASSIUM SERUM 3.9 MEQ/L (3.5-5.1); SODIUM LEVEL 138 MEQ/L (136-145); TOTAL PROTEIN 7.5 GM/DL (6.4-8.2)
[2021-03-23] MEDS ORDERED: LABE20TAB PO (17:32)
[2021-03-23 17:54] LABS: APPEARANCE, URINE CLEAR (CLEAR); BACTERIA, URINE AUTO NEGATIVE (NEGATIVE); BILIRUBIN, URINE AUTO NEGATIVE (NEGATIVE); BLOOD, URINE BLOOD 3+ (NEGATIVE); COLOR, URINE STRAW (YELLOW); GLUCOSE, URINE (UA) AUTO NEGATIVE (NEGATIVE); KETONE, URINE AUTO NEGATIVE (NEGATIVE); LEUKOCYTE ESTERASE, URINE AUTO TRACE (NEGATIVE); MUCUS, URINE SMALL (NEGATIVE); NITRITE, URINE AUTO NEGATIVE (NEGATIVE); PROTEIN, URINE AUTO 2+ mg/dL (NEGATIVE); RBC, URINE AUTO 3 /HPF (0-3); SPECIFIC GRAVITY URINE AUTO 1.006 (1.002-1.035); SQUAMOUS EPITHELIAL CELL UR AU 1 /HPF (0-6); UROBILINOGEN, URINE AUTO 0.2 mg/dL (0.0-2.0); WBC, URINE AUTO 4 /HPF (0-3)
[2021-03-23 18:06] VITALS: BP 142/71
--- NOTE | 2021-03-24 08:52 | ECGEPIP ---
[facility] - ED Test Date: 2021-03-23 Pat Name: LARISA VIZCAINO Department: Room: - Gender: Female Teletype Or Varitype Keyboard Operator: sonam : 1985 Requested By: Swati Hayes Order Number: [id number] Reading MD: Swati Hayes Measurements Intervals [place] Rate: 77 P: 23 NC: 132 QRS: -4 QRSD: 78 T: 16 QT: 390 QTc: 441 Interpretive Statements Normal sinus rhythm Minimal voltage criteria for LVH, may be normal variant ( R in aVL ) No prior Electronically Signed on 03-24-2021 8:52:40 EDT by Swati Hayes
== END 2021-03-23 18:10 | disposition home or self-care (01) ==
LOC: M ED 15:35
DX: O14.95 Unspecified pre-eclampsia, complicating the puerperium (principal); O24.439 Gestational diabetes mellitus in the puerperium, unspecified control; Z79.899 Other long term (current) drug therapy

== ENCOUNTER → 2021-05-14 | Outpatient (REF) | payer OTHER ==
[~2021-05-14] MED LIST changes: +LABE20TAB PO
[2021-05-14 13:11] LABS: BASO # 0.1 10^3/uL (0.0-0.2); BASO % 0.7 % (0.0-1.0); EOS # 0.1 10^3/uL (0.0-0.5); EOS % 1.6 % (0.0-3.0); HEMATOCRIT 40.1 % (36.0-47.0); HEMOGLOBIN 12.9 g/dl (12.0-15.5); LYMPH % 37.3 % (24.0-44.0); MEAN CORPUSCULAR HEMOGLOBIN 28.3 pg (27.0-33.0); MEAN CORPUSCULAR HGB CONC 32.2 g/dl (32.0-36.5); MEAN CORPUSCULAR VOLUME 87.9 fl (80.0-96.0); MONO # 0.6 10^3/uL (0.0-0.8); MONO % 7.7 % (2.0-8.0); NEUTROPHILS # 4.2 10^3/uL (1.5-8.5); NEUTROPHILS % 51.8 % (36.0-66.0); PLATELET COUNT, AUTOMATED 289 10^3/uL (150-450); RED BLOOD COUNT 4.56 10^6/uL (4.00-5.40); WHITE BLOOD COUNT 8.1 10^3/uL (4.0-10.0)
[2021-05-14 13:57] LABS: CREATININE, URINE 91.5 MG/DL; MALB URINE SIEMENS 30.3 MG/L; MAU/CREAT RATIO 33.1 MCG/MG (0.0-30.0)
[2021-05-14 14:03] LABS: ALBUMIN 4.1 GM/DL (3.2-5.2); ALT/SGPT 106 U/L (12-78); BILIRUBIN,TOTAL 0.4 MG/DL (0.2-1.0); BLOOD UREA NITROGEN 12 MG/DL (7-18); CALCIUM LEVEL 9.3 MG/DL (8.5-10.1); CARBON DIOXIDE LEVEL 26 MEQ/L (21-32); CHLORIDE LEVEL 104 MEQ/L (98-107); CHOLESTEROL LEVEL 294 MG/DL (<200); CHOLESTEROL RISK RATIO 6.837 (<5); GLOMERULAR FILTRATION RATE > 60.0 (>60); GLUCOSE, FASTING 100 MG/DL (70-100); HDL CHOLESTEROL 43 MG/DL (>40); LDL CHOLESTEROL 202 MG/DL (<100); NON-HDL-C 251 MG/DL; POTASSIUM SERUM 4.2 MEQ/L (3.5-5.1); SODIUM LEVEL 138 MEQ/L (136-145); TOTAL PROTEIN 7.5 GM/DL (6.4-8.2); TRIGLYCERIDES LEVEL 244 MG/DL (<150)
[2021-05-14 14:15] LABS: HEMOGLOBIN A1c 5.6 %
== END ==
LOC: M SFHCCLAY 09:20
PROVIDERS: ATTEND Nurse Practitioner Family
DX: I10 Essential (primary) hypertension (principal); O24.419 Gestational diabetes mellitus in pregnancy, unspecified control; E78.5 Hyperlipidemia, unspecified

== ENCOUNTER → 2022-08-15 | Outpatient (REF) | payer OTHER ==
[2022-08-15 17:44] LABS: HEMATOCRIT 37.8 % (36.0-47.0); HEMOGLOBIN 12.3 g/dl (12.0-15.5); MEAN CORPUSCULAR HEMOGLOBIN 28.7 pg (27.0-33.0); MEAN CORPUSCULAR HGB CONC 32.5 g/dl (32.0-36.5); MEAN CORPUSCULAR VOLUME 88.3 fl (80.0-96.0); PLATELET COUNT, AUTOMATED 264 10^3/uL (150-450); RED BLOOD COUNT 4.28 10^6/uL (4.00-5.40); WHITE BLOOD COUNT 9.3 10^3/uL (4.0-10.0)
[2022-08-15 20:07] LABS: BLOOD UREA NITROGEN 9 MG/DL (7-18); CALCIUM LEVEL 9.1 MG/DL (8.5-10.1); CARBON DIOXIDE LEVEL 25 MEQ/L (21-32); CHLORIDE LEVEL 105 MEQ/L (98-107); CHOLESTEROL LEVEL 214 MG/DL (<200); CHOLESTEROL RISK RATIO 6.114 (<5); FREE T4 0.88 NG/DL (0.76-1.46); GLOMERULAR FILTRATION RATE > 60.0 (>60); GLUCOSE, FASTING 108 MG/DL (70-100); HDL CHOLESTEROL 35 MG/DL (>40); LDL CHOLESTEROL 123 MG/DL (<100); NON-HDL-C 179 MG/DL; POTASSIUM SERUM 4.6 MEQ/L (3.5-5.1); SODIUM LEVEL 138 MEQ/L (136-145); THYROID STIMULATING HORMONE 0.841 uIU/ML (0.358-3.740); TRIGLYCERIDES LEVEL 282 MG/DL (<150)
== END ==
LOC: M SFHCCLAY 10:32
PROVIDERS: ATTEND Nurse Practitioner Family
DX: E78.5 Hyperlipidemia, unspecified (principal); Z86.32 Personal history of gestational diabetes; Z86.39 Personal history of other endocrine, nutritional and metabolic disease; I10 Essential (primary) hypertension

== ENCOUNTER → 2023-03-19 | Outpatient (REF) | payer OTHER ==
[2023-03-19 18:18] LABS: HEMOGLOBIN A1c 5.7 % (4.0-6.0)
[2023-03-19 18:27] LABS: ALBUMIN 3.9 G/DL (3.2-5.2); ALKALINE PHOSPHATASE 77 U/L (46-116); ALT/SGPT 26 U/L (7.0-40); AST/SGOT 16 U/L (<34); BILIRUBIN,TOTAL 0.4 MG/DL (0.3-1.2); BLOOD UREA NITROGEN 12 MG/DL (9-23); CARBON DIOXIDE LEVEL 27 MMOL/L (20-31); CHLORIDE LEVEL 104 MMOL/L (98-107); CHOLESTEROL LEVEL 226 MG/DL (<200); CHOLESTEROL RISK RATIO 5.36 (<5); GLOMERULAR FILTRATION RATE > 60.0 (>60); GLUCOSE, FASTING 81 MG/DL (60-100); HDL CHOLESTEROL 42.1 MG/DL (>40); LDL CHOLESTEROL 123.1 MG/DL (<100); NON-HDL-C 183.9 MG/DL; POTASSIUM SERUM 4.4 MMOL/L (3.5-5.1); SODIUM LEVEL 140 MMOL/L (136-145); TOTAL PROTEIN 6.9 G/DL (5.7-8.2); TRIGLYCERIDES LEVEL 304 MG/DL (<150)
[2023-03-19 18:31] LABS: FREE T4 1.06 NG/DL (0.89-1.76)
== END ==
LOC: M SFHCCLAY 11:12
PROVIDERS: ATTEND Nurse Practitioner Family
DX: R73.03 Prediabetes (principal); I10 Essential (primary) hypertension; E78.5 Hyperlipidemia, unspecified; Z86.39 Personal history of other endocrine, nutritional and metabolic disease

== ENCOUNTER → 2023-11-19 | Outpatient (REF) | payer OTHER ==
[2023-11-19 12:54] LABS: HEMOGLOBIN A1c 5.7 % (4.0-6.0)
[2023-11-19 13:01] LABS: THYROID STIMULATING HORMONE 1.046 uIU/ML (0.55-4.78)
[2023-11-19 13:02] LABS: ALBUMIN 3.9 G/DL (3.2-5.2); ALKALINE PHOSPHATASE 75 U/L (46-116); ALT/SGPT 13 U/L (7.0-40); AST/SGOT 9 U/L (<34); BILIRUBIN,TOTAL 0.3 MG/DL (0.3-1.2); BLOOD UREA NITROGEN 13 MG/DL (9-23); CALCIUM LEVEL 9.2 MG/DL (8.5-10.1); CARBON DIOXIDE LEVEL 27 MMOL/L (20-31); CHLORIDE LEVEL 105 MMOL/L (98-107); CHOLESTEROL LEVEL 221 MG/DL (<200); CHOLESTEROL RISK RATIO 5.48 (<5); CREATININE FOR GFR 0.75 MG/DL (0.55-1.30); FREE T4 1.05 NG/DL (0.89-1.76); GLOMERULAR FILTRATION RATE > 60.0 (>60); GLUCOSE, FASTING 119 MG/DL (60-100); HDL CHOLESTEROL 40.3 MG/DL (>40); LDL CHOLESTEROL 144.3 MG/DL (<100); NON-HDL-C 180.7 MG/DL; POTASSIUM SERUM 4.4 MMOL/L (3.5-5.1); SODIUM LEVEL 139 MMOL/L (136-145); TRIGLYCERIDES LEVEL 182 MG/DL (<150)
== END ==
LOC: M SFHCCLAY 08:27
PROVIDERS: ATTEND Nurse Practitioner Family
DX: I10 Essential (primary) hypertension (principal); E78.5 Hyperlipidemia, unspecified; Z86.32 Personal history of gestational diabetes; Z86.39 Personal history of other endocrine, nutritional and metabolic disease